=== PATIENT | female | born 1945 | race Caucasian/White ===

== ENCOUNTER → 2017-07-11 | Outpatient (CLI) | payer OTHER ==
[~2017-07-11] MED LIST: REGADENOSON 0.4 MG/5 ML DISP.SYRIN. IV ONE
--- NOTE | 2017-07-11 17:02 | PCVCIMAG ---
APPROVED REPORT Exam: Nuclear Stress Test Indication: CAD, ICM Patient Location: Out Patient Stress Nurse: Jessica Ryan RN, PAUL Graham Tech:Jung YangINCOTCB Ht: 5 ft 4 in Wt: 137 lbs BSA: 1.67 m2 HR: 78 bpm BP: 163/73 mmHg BMI: 23.5 Rhythm: SR Medical History Medical History: Age, HTN, CAD, Former Smoker Medications: Coreg, Zocor, Aldactone, Trandolapril Allergies: NKDA Pretest Chest Pain Characteristics: No chest pain Exercise History: Physically active Meds Held (24 hrs): Coreg, Imdur NM EXAM: Myocardial Perfusion REST/STRESS Imaging Protocol: Rest Tc-99m/Stress Tc-99m 1 day Resting Data Rest SPECT myocardial perfusion imaging was performed in supine position 45 minutes following the intravenous injection of 8.5 mCi of Tc-99m Sestamibi. Time of rest injection: 0845 Date: 07/11/2017 Pharmacologic Stress Pharmacologic stress test was performed by injecting Regadenoson 0.4 mg IV push followed by the intravenous injection of 1015 mCi of Tc-99m Sestamibi. Time of stress injection: 1015 Date: 07/11/2017 The images were gated to evaluate regional wall motion and calculate left ventricular ejection fraction. Study Quality Study: Good Study Data Post stress, the left ventricular ejection was 36%.. SSS: 32 SRS: 31 SDS: 2 TID = 1.07. 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 Wall Motion There is a large area of akinesis in the mid and apical segment of the anteroseptal wall which is seen on the stress images as well as the resting images. 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 Post stress, the left ventricular ejection was 36%.. No change since prior study dated April 2014. Interpreted by: Vasile Pinon MD Electronically Approved: 07/11/2017 13:30:25 Stress Test Details Stress Test: Pharmacologic stress was paired with low level exercise. Reason for pharmacologic stress test: ICD. HR Resting HR: 78 bpmMax Heart Rate (APMHR): 148 bpm Max HR Achieved: 137 bpmTarget HR (85% APMHR): 125 bpm % of APMHR: 92 Recovery HR: 82 bpm BP Resting BP: 163/73 mmHg Max BP: 144/78 mmHg ECG Resting ECG: Sinus Rhythm Stress ECG: Sinus Tachycardia Maximum ST Deviation: 0 mm Arrhythmia: Isolated PVC Recovery ECG: Sinus Rhythm Recovery ST Change: None Recovery ST Deviation: 0 mm Clinical Reason for Termination: Completed protocol Stress Symptoms: Dyspnea Exercise duration: 4 min sec Exercise capacity: 1.6 METs Symptoms resolved during recovery. Stress ECG Conclusion ECG: Non-ischemic Clinical: Non-ischemic <Conclusion> ECG: Non-ischemic Clinical: Non-ischemic
== END | disposition home or self-care (01) ==
LOC: PCVCIMAG 08:24
PROVIDERS: ATTEND Nuclear Medicine Nuclear Cardiology
DX: I25.10 Atherosclerotic heart disease of native coronary artery without angina pectoris (principal); I10 Essential (primary) hypertension; R00.0 Tachycardia, unspecified; Z87.891 Personal history of nicotine dependence
CPT/HCPCS: 78452; 93017; A9500; J2785